=== PATIENT | female | born 1990 | race Asian ===

== ENCOUNTER 2016-11-19 19:10 | Emergency (ER) | payer BC ==
[~2016-11-19] VITALS: Ht 152.4 cm; Wt 46.7 kg
[2016-11-19 20:59] LABS: *BILIRUBIN,URIN NEGATIVE (NEGATIVE); *BLOOD, URINE Trace-intact (NEGATIVE); *CLARITY,URINE CLOUDY (CLEAR); *COLOR,URINE YELLOW (YELLOW); *KETONES,URINE NEGATIVE (NEGATIVE); *PROTEIN,URINE 1+ (NEGATIVE); *UROBILINOGEN,URINE 0.2 E.U./dl (NORMAL); LEUKOCYTE ESTERASE ,URINE 1+ (NEGATIVE); PH,URINE 8.5 (5.0-8.0); UGLUCOSE NEGATIVE (NEGATIVE)
[2016-11-19 21:03] LABS: *URINE HCG, QUAL NEGATIVE (NEGATIVE)
[2016-11-19 21:14] LABS: NITRITE, URINE POSITIVE (NEGATIVE)
[2016-11-19 21:15] LABS: BACTERIA,URINE MANY /HPF (NONE SEEN); SQUAMOUS EPITHELIAL CELL,UR MODERATE /HPF (NONE SEEN); WBC,URINE 50-80 /HPF (0-3)
[2016-11-19] MEDS ORDERED: GENTAMICIN SULFATE INJ 80 MG in IV DEXTROSE 5% 100 ML IV ONE (21:45)
[2016-11-19] MEDS ORDERED: CEFTRIAXONE 1 G in IV DEXTROSE 5% 50 ML IV ONE (21:45)
[2016-11-19] MEDS ORDERED: KETOROLAC TROMETHAMINE 15 MG INJ IVP ONE (21:45)
[2016-11-19 21:58] LABS: BASOPHILS # (AUTO) 0.1 K/uL (0.0-8.0); BASOPHILS % (AUTO) 0.5 % (0.0-2.0); EOSINOPHILS % (AUTO) 0.2 % (0.0-7.0); HEMATOCRIT 39.5 % (31.2-41.9); HEMOGLOBIN 13.8 g/dL (10.9-14.3); LYMPHOCYTES # (AUTO) 1.6 K/uL (20.0-40.0); LYMPHOCYTES % (AUTO) 9.1 % (20.5-51.5); MEAN CORPUSCULAR HEMOGLOBIN 31.2 uug (24.7-32.8); MEAN CORPUSCULAR HGB CONC 35 g/dL (32.3-35.6); MEAN CORPUSCULAR VOLUME 89.4 fL (75.5-95.3); MONOCYTES # (AUTO) 1.1 K/uL (2.0-10.0); MONOCYTES % (AUTO) 5.9 % (0.0-11.0); NEUTROPHILS # (AUTO) 15.2 K/uL (1.8-8.9); NEUTROPHILS % (AUTO) 84.3 % (38.5-71.5); PLATELET COUNT (AUTO) 255 K/uL (179-408); RED BLOOD CELL COUNT(AUTO) 4.42 MIL/uL (3.63-4.92); RED CELL DISTRIBUTION WIDTH 12.2 % (12.3-17.7)
[2016-11-19] MEDS ORDERED: KETOROLAC TROMETHAMINE 15 MG INJ ONE (21:58)
[2016-11-19] MEDS ORDERED: CEFTRIAXONE 1 G VIAL ONE (21:58)
[2016-11-19] MEDS ORDERED: GENTAMICIN SULFATE 80 MG/2 ML VIAL ONE (21:58)
[2016-11-19 22:02] LABS: CALCIUM 9.5 mg/dL (8.5-10.1); CREATININE 0.9 mg/dL (0.6-1.3)
[2016-11-19 22:08] LABS: ALBUMIN 3.6 g/dL (3.4-5.0); BILIRUBIN,DIRECT 0.1 mg/dL (0.0-0.2); BILIRUBIN,TOTAL 0.6 mg/dL (0.2-1.0); TOTAL PROTEIN, SERUM 8.6 g/dL (6.4-8.2)
[2016-11-19 22:10] LABS: TROPONIN I < 0.017 ng/mL (0.00-0.056)
[2016-11-19 22:23] LABS: BAND % (MANUAL) 8 % (0-10); LYMPHOCYTES % (MANUAL) 11 % (20-40); MONOCYTES % (MANUAL) 7 % (2-10); NEUTROPHILS % (MANUAL) 74 % (42-75); PLATELET ESTIMATE ADEQUATE
[2016-11-19 22:24] LABS: LACTIC ACID 1.2 mmol/L (0.4-2.0)
--- NOTE | 2016-11-19 23:46 | NUR ---
IV removed. Catheter intact and site benign. Pressure and 4x4 gauze applied to site. No bleeding noted.
--- NOTE | 2016-11-19 23:50 | NUR ---
Patient discharged to home in stable conditon with brother taking Pt home. Written and verbal after care instructions given. Patient verbalizes understanding of instructions. Walked out of ER with steady gait
[2016-11-19 23:51] VITALS: BP 12/58
== END 2016-11-19 23:52 | disposition home or self-care (01) ==
LOC: ER 19:10
DX: N12 Tubulo-interstitial nephritis, not specified as acute or chronic (principal)
CPT/HCPCS: 36415; 70030-TC; 71010; 83605; 84703; 85025; 85730; 87040; 87077; 87086; A4663; J0696; J1580; J1885; J7060